=== PATIENT | male | born 1970 | race Caucasian/White ===

== ENCOUNTER 2016-08-04 15:28 | Emergency (ER) | payer OTHER ==
[2016-08-04 16:31] VITALS: BP 157/80; PULSE 55; RESP 16; TEMP 98.4; O2SAT 100
--- NOTE | 2016-08-04 17:05 | UCPHY ---
H & P Patient Type: New Chief Complaint Nursing Narrative: Pain in below medial aspect of knee area for 2 weeks, Pain now radiating up and down from that area today . feels tingly and numb . foot also has normal movmenet but feels numb and tingly. Feeling a little sob today. Previous hx of long drives during the holidays. Time Seen by Provider: 08/04/16 16:54 HPI/ROS: CHIEF COMPLAINT: Leg pain, shortness of breath HISTORY OF PRESENT ILLNESS: Patient is a 45-year-old healthy man who comes to the Urgent Care complaining of leg pain and now shortness of breath. He states that he did a lot of driving over the holidays and that he wore compression stockings because he has history of varicose veins. However after the driving he began to notice some pain and firmness in some of the varicose veins on the medial aspect of his right knee. This seemed to stay for the last week or so but then today he began having pain in his thigh and calf as well and some mild shortness of breath. He states that the episodes of shortness of breath last for about 10 minutes and occur at rest. He denies chest pain, nausea, vomiting or diaphoresis. He denies other trauma. No fevers. REVIEW OF SYSTEMS: Constitutional: denies: chills, fever, recent illness, recent injury EENTM: denies: blurred vision, double vision, nose congestion Respiratory: See HPI Cardiac: denies: chest pain, irregular heart rate, lightheadedness, palpitations Gastrointestinal/Abdominal: denies: abdominal pain, diarrhea, nausea, vomiting, blood streaked stools Genitourinary: denies: dysuria, frequency, hematuria, pain Musculoskeletal: See HPI Skin: denies: lesions, rash, jaundice, bruising Neurological: denies: headache, numbness, paresthesia, tingling, dizziness, weakness Hematologic/Lymphatic: denies: blood clots, easy bleeding, easy bruising Immunologic/allergic: denies: HIV/AIDS, transplant EXAM: GENERAL: Well-appearing, well-nourished and in no acute distress. HEAD: Atraumatic, normocephalic. EYES: Pupils equal round and reactive to light, extraocular movements intact, sclera anicteric, conjunctiva are normal. ENT: TMs normal, nares patent, oropharynx clear without exudates. Moist mucous membranes. NECK: Normal range of motion, supple without lymphadenopathy or JVD. LUNGS: Breath sounds clear to auscultation bilaterally and equal. No wheezes rales or rhonchi. HEART: Regular rate and rhythm without murmurs, rubs or gallops. ABDOMEN: Soft, nontender, normoactive bowel sounds. No guarding, no rebound. No masses appreciated. BACK: No CVA tenderness, no spinal tenderness, step-offs or deformities EXTREMITIES: Both lower extremities with multiple varicosities, right side with some firmness to the medial aspect of the knee. No pain with calf squeeze NEUROLOGICAL: Cranial nerves II through XII grossly intact. Normal speech, normal gait. 5/5 strength, normal movement in all extremities, normal sensation PSYCH: Normal mood, normal affect. SKIN: Warm, dry, normal turgor, no visible rashes or lesions. Source: Patient - Medical/Surgical History Hx Asthma: No Hx Chronic Respiratory Disease: No Hx Diabetes: No Hx Cardiac Disease: No Hx Renal Disease: No Hx Cirrhosis: No Hx Alcoholism: No Other PMH: PCP Rolando Montalvo. TEtanus UTD. Flu Vacc NONE. surg . tonsilectomy. Med NONE - Family History Significant Family History: Hypertension - Social History Smoking Status: Never smoked Alcohol Use: None Drug Use: None Constitutional: Initial Vital Signs Temperature (C) 36.9 C 08/04/16 16:23 Heart Rate 55 L 08/04/16 16:23 Respiratory Rate 16 08/04/16 16:23 Blood Pressure 157/80 H 08/04/16 16:23 O2 Sat (%) 100 08/04/16 16:23 Allergies/Adverse Reactions: No Known Allergies Allergy (Unverified 08/04/16 16:31) Home Medications: Medication Instructions Recorded NK [No Known Home Meds] 08/04/16 Medical Decision Making - Diagnostics Imaging: X-ray: chest x-ray was obtained. I viewed the images myself on the PACS system. My interpretation of the images is: negative for acute disease . The radiologist interpretation is pending. ED Course/Re-evaluation: The patient received chest x-ray but then we learned that ultrasound is not currently available. Since this is the primary test that he needs I discussed this with him and he decided to simply go to the emergency department. He will likely go to [facility] because it is close. He declines further workup or testing. I offered transportation but he declines. We we will discharge the patient to go to an ED of his choice. he is not in any distress. Medical screening exam was performed by me. Will not charge for this visit according to her protocols when services are unavailable. The patient's x-ray was read as possibly mild bronchitis. He does not have a cough or fever. At this point he has left the department and is on his way to the emergency department. Differential Diagnosis: Partial list of the Differential diagnosis considered include but were not limited to; DVT, thrombophlebitis, PE and although unlikely based on the history and physical exam, I also considered pneumonia, acute coronary disease, dissection. I discussed these differential diagnoses and the plan with the patient as well as the usual and expected course. The patient understands that the diagnosis is provisional and that in medicine we are not always correct and that further workup is often warranted. Usual and customary warnings were given. All of the patient's questions were answered. The patient was instructed to return to the emergency department should the symptoms at all worsen or return, otherwise to followup with the physician as we discussed. Departure - Departure Disposition: Home, Routine, Self-Care Clinical Impression: Leg pain Qualifiers: Laterality: right Qualifier Code: (M79.604) Pain in right leg Condition: Fair Instructions: Leg Pain (ED) Additional Instructions: go directly to the emergency department for ultrasound. Referrals: Rolando Montalvo MD [Primary Care Provider] - As per Instructions - PQRS PQRS Measurement: Not applicable
--- NOTE | 2016-08-04 17:19 | DX ---
PA and Lateral Chest History: Chest pain, shortness of breath. Comparison: CT calcium score January 22, 2016. Findings: There is mild peribronchial thickening without focal consolidation. The lungs are mildly hy perexpanded. There is no pneumothorax or pleural effusion. The heart and pulmonary vasculature are no rmal. The bones are normal. Impression: Mild peribronchial thickening suggesting airways disease/bronchitis.
== END 2016-08-04 17:45 | disposition home or self-care (01) ==
LOC: CED 15:28
DX: M79.604 Pain in right leg (principal)
CPT/HCPCS: 71020-PO; 99204-PO